=== PATIENT | female | born 1940 | race Caucasian/White ===

== ENCOUNTER 2017-08-29 14:57 | Emergency (ER) | payer SELFPAY, OTHER ==
[2017-08-29 15:50] LABS: ADD MAN DIFF? NO
[2017-08-29 15:52] LABS: BASOPHILS % 0.4 % (0.0-2.0); EOSINOPHILS % 0.3 % (0.0-7.0); HEMATOCRIT 34.5 % (37.0-47.0); HEMOGLOBIN 11.3 g/dl (12.0-16.0); LYMPHOCYTES # 1.6 10^3/ul (0.8-2.9); LYMPHOCYTES % 15.1 % (15.0-51.0); MEAN CORPUSCULAR HEMOGLOBIN 26.8 pg (29.0-33.0); MEAN CORPUSCULAR HGB CONC 32.8 g/dl (32.0-37.0); MEAN CORPUSCULAR VOLUME 81.9 fl (82.0-101.0); MEAN PLATELET VOLUME 11.3 fl (7.4-10.4); MONOCYTE # 0.7 10^3/ul (0.3-0.9); MONOCYTES % 6.8 % (0.0-11.0); NEUTROPHIL # 8.4 10^3/ul (1.6-7.5); PLATELET COUNT 193 10^3/UL (140-415); RED BLOOD COUNT 4.21 10^6/ul (4.20-5.40); RED CELL DISTRIBUTION WIDTH 14.8 % (11.5-14.5)
[2017-08-29 15:52] LABS: WHITE BLOOD COUNT 10.9 10^3/ul (4.8-10.8)
[2017-08-29 16:08] LABS: INR 1.09; PARTIAL THROMBOPLASTIN TIME 32.7 Sec (25.0-35.0); PROTIME 14.3 Sec (11.9-14.9); PT RATIO 1.1
[2017-08-29 16:11] LABS: LACTIC ACID 1.4 mmol/L (0.5-2.0)
[2017-08-29 16:11] LABS: ALANINE AMINOTRANSFERASE 27 IU/L (13-69); ALBUMIN 3.8 g/dl (3.3-4.9); ALKALINE PHOSPHATASE 133 IU/L (42-121); ANION GAP 18 (8-16); ASPARTATE AMINO TRANSFERASE 20 IU/L (15-46); BILIRUBIN,INDIRECT 0.2 mg/dl (0-1.1); BILIRUBIN,TOTAL 0.2 mg/dl (0.2-1.3); BLOOD UREA NITROGEN 6 mg/dl (7-20); CALCIUM 9.1 mg/dl (8.4-10.2); CARBON DIOXIDE 21 mmol/L (21-31); CHLORIDE 101 mmol/L (97-110); CHOL/HDL RATIO 3.4 RATIO; CHOLESTEROL 140 mg/dl (100-200); CREATINE KINASE 31 IU/L (23-200); CREATININE 0.59 mg/dl (0.44-1.00); GLUCOSE 107 mg/dl (70-220); HDL CHOLESTEROL 41 mg/dl (33-92); LDL CHOLESTEROL,CALCULATED 81 mg/dl; POTASSIUM 4.2 mmol/L (3.5-5.1); SODIUM 136 mmol/L (135-144); TOTAL PROTEIN 7.6 g/dl (6.1-8.1); TRIGLYCERIDES 91 mg/dl (0-149)
[2017-08-29 16:17] LABS: HEMOGLOBIN A1C 5.7 % (0-5.9)
[2017-08-29 16:22] LABS: CK INDEX 2.2; CK-MB 0.69 ng/ml (0.0-2.4)
[2017-08-29 16:24] LABS: TROPONIN-I < 0.012 ng/ml (0.00-0.12)
[2017-08-29] MEDS ORDERED: ASPIRIN 325 MG TAB PO (16:30)
[2017-08-29] MEDS: SOD CHLORIDE 0.9% 100 ML (16:57)
[2017-08-29] MEDS: IOHEXOL 100 ML (16:57)
[2017-08-29] MEDS: SOD CHLORIDE 0.9% 1,000 ML IV (17:05)
[2017-08-29] MEDS: ASPIRIN 600 MG SUPP PR (17:05)
[2017-08-29 17:06] LABS: ADD UMIC NO; UR ASCORBIC ACID NEGATIVE (NEGATIVE); UR BILIRUBIN (Dip) NEGATIVE (NEGATIVE); UR BLOOD (Dip) NEGATIVE (NEGATIVE); UR CLARITY CLEAR (CLEAR); UR COLOR YELLOW (YELLOW); UR GLUCOSE (Dip) NEGATIVE (NEGATIVE); UR KETONES (Dip) NEGATIVE (NEGATIVE); UR LEUKOCYTE ESTERASE (Dip) NEGATIVE Leu/ul (NEGATIVE); UR NITRITE (Dip) NEGATIVE (NEGATIVE); UR TOTAL PROTEIN (Dip) NEGATIVE (NEGATIVE); UR UROBILINOGEN (Dip) NEGATIVE (NEGATIVE)
== END 2017-08-29 18:09 | disposition short-term general hospital (02) ==
LOC: E/R 18:09
DX: I63.512 Cerebral infarction due to unspecified occlusion or stenosis of left middle cerebral artery (principal)
CPT/HCPCS: 36415; 70450; 70496; 70498; 71045; 80053; 80061; 81003; 82550; 82553; 82962; 83036; 83605; 84484; 85025; 85610; 85730; 86850; 86900; 86901; 87040; 87086; 93005; 99291-25

== ENCOUNTER 2017-10-24 00:40 | Inpatient (IN) | payer MEDICAID ==
[2017-10-24] MEDS: SODIUM CHLORIDE 0.9% 1L BAG IV* (01:58)
[2017-10-24] MEDS: ACETAMINOPHEN 650 MG SUPP PR (01:59)
[2017-10-24 02:31] LABS: ADD MAN DIFF? NO
[2017-10-24 02:36] LABS: WHITE BLOOD COUNT 10.9 10^3/ul (4.8-10.8)
[2017-10-24 02:36] LABS: BASOPHIL # 0.1 10^3/ul (0.0-0.1); BASOPHILS % 0.6 % (0.0-2.0); EOSINOPHILS % 0.1 % (0.0-7.0); HEMATOCRIT 38.5 % (37.0-47.0); HEMOGLOBIN 12.4 g/dl (12.0-16.0); LYMPHOCYTES # 1.4 10^3/ul (0.8-2.9); LYMPHOCYTES % 12.5 % (15.0-51.0); MEAN CORPUSCULAR HEMOGLOBIN 27.4 pg (29.0-33.0); MEAN CORPUSCULAR HGB CONC 32.2 g/dl (32.0-37.0); MEAN CORPUSCULAR VOLUME 85.2 fl (82.0-101.0); MEAN PLATELET VOLUME 11.4 fl (7.4-10.4); MONOCYTE # 0.7 10^3/ul (0.3-0.9); MONOCYTES % 6.6 % (0.0-11.0); NEUTROPHIL # 8.7 10^3/ul (1.6-7.5); NEUTROPHILS % 79.7 % (39.0-77.0); PLATELET COUNT 173 10^3/UL (140-415); RED BLOOD COUNT 4.52 10^6/ul (4.20-5.40); RED CELL DISTRIBUTION WIDTH 15.5 % (11.5-14.5)
[2017-10-24 02:53] LABS: LACTIC ACID 1.5 mmol/L (0.5-2.0)
[2017-10-24 02:54] LABS: ALANINE AMINOTRANSFERASE 20 IU/L (13-69); ALBUMIN 3.9 g/dl (3.3-4.9); ALBUMIN/GLOBULIN RATIO 0.95; ALKALINE PHOSPHATASE 143 IU/L (42-121); ANION GAP 16 (8-16); ASPARTATE AMINO TRANSFERASE 25 IU/L (15-46); BLOOD UREA NITROGEN 11 mg/dl (7-20); CARBON DIOXIDE 24 mmol/L (21-31); CHLORIDE 100 mmol/L (97-110); CREATININE 0.65 mg/dl (0.44-1.00); GLUCOSE 109 mg/dl (70-220); LIPASE 60 U/L (23-300); POTASSIUM 3.9 mmol/L (3.5-5.1); SODIUM 136 mmol/L (135-144)
[2017-10-24 03:11] LABS: INR 1.06; PROTIME 13.9 Sec (11.9-14.9); PT RATIO 1.1
[2017-10-24 03:12] LABS: PARTIAL THROMBOPLASTIN TIME 29.2 Sec (25.0-35.0)
[2017-10-24 03:21] LABS: TROPONIN-I < 0.010 ng/ml (0.000-0.120)
[2017-10-24 03:26] LABS: ADD UMIC YES; UR ASCORBIC ACID NEGATIVE (NEGATIVE); UR BILIRUBIN (Dip) NEGATIVE (NEGATIVE); UR BLOOD (Dip) NEGATIVE (NEGATIVE); UR CLARITY CLOUDY (CLEAR); UR COLOR AMBER (YELLOW); UR GLUCOSE (Dip) NEGATIVE (NEGATIVE); UR KETONES (Dip) TRACE mg/dL (NEGATIVE); UR LEUKOCYTE ESTERASE (Dip) NEGATIVE Leu/ul (NEGATIVE); UR MUCUS MANY /HPF (NONE SEEN); UR NITRITE (Dip) NEGATIVE (NEGATIVE); UR RBC 6 /HPF (0-5); UR SPECIFIC GRAVITY (Dip) 1.024 (1.003-1.030); UR TOTAL PROTEIN (Dip) 1+ mg/dl (NEGATIVE); UR UROBILINOGEN (Dip) 2+ mg/dL (NEGATIVE); UR WBC 4 /HPF (0-5)
[2017-10-24] MEDS: CEFTRIAXONE 1 GM/50 ML (PMX) 50 ML IVPB (03:26)
[2017-10-24] MEDS: DEXTROSE 5%-0.45% NACL 1,000 ML IV ×2 (06:43→19:47)
[2017-10-24 06:51] LABS: ADD MAN DIFF? NO
[2017-10-24 07:08] LABS: BASOPHIL # 0.1 10^3/ul (0.0-0.1); BASOPHILS % 0.7 % (0.0-2.0); EOSINOPHILS % 0.4 % (0.0-7.0); HEMATOCRIT 33.9 % (37.0-47.0); HEMOGLOBIN 10.7 g/dl (12.0-16.0); LYMPHOCYTES # 1.5 10^3/ul (0.8-2.9); LYMPHOCYTES % 16.3 % (15.0-51.0); MEAN CORPUSCULAR HEMOGLOBIN 27.7 pg (29.0-33.0); MEAN CORPUSCULAR HGB CONC 31.6 g/dl (32.0-37.0); MEAN CORPUSCULAR VOLUME 87.8 fl (82.0-101.0); MEAN PLATELET VOLUME 11.1 fl (7.4-10.4); MONOCYTE # 0.7 10^3/ul (0.3-0.9); MONOCYTES % 7.1 % (0.0-11.0); NEUTROPHIL # 6.9 10^3/ul (1.6-7.5); NEUTROPHILS % 74.7 % (39.0-77.0); PLATELET COUNT 160 10^3/UL (140-415); RED BLOOD COUNT 3.86 10^6/ul (4.20-5.40); RED CELL DISTRIBUTION WIDTH 15.6 % (11.5-14.5)
[2017-10-24 07:08] LABS: WHITE BLOOD COUNT 9.2 10^3/ul (4.8-10.8)
[2017-10-24 07:24] LABS: ALANINE AMINOTRANSFERASE 21 IU/L (13-69); ALBUMIN 3.1 g/dl (3.3-4.9); ALBUMIN/GLOBULIN RATIO 0.91; ALKALINE PHOSPHATASE 116 IU/L (42-121); ANION GAP 7 (8-16); ASPARTATE AMINO TRANSFERASE 21 IU/L (15-46); BILIRUBIN,INDIRECT 0.6 mg/dl (0-1.1); BILIRUBIN,TOTAL 0.6 mg/dl (0.2-1.3); BLOOD UREA NITROGEN 9 mg/dl (7-20); CALCIUM 8.3 mg/dl (8.4-10.2); CARBON DIOXIDE 27 mmol/L (21-31); CHLORIDE 108 mmol/L (97-110); CREATININE 0.64 mg/dl (0.44-1.00); GLUCOSE 99 mg/dl (70-220); MAGNESIUM 2.1 mg/dl (1.7-2.5); PHOSPHORUS 4.4 mg/dl (2.5-4.9); POTASSIUM 3.8 mmol/L (3.5-5.1); SODIUM 138 mmol/L (135-144); TOTAL PROTEIN 6.5 g/dl (6.1-8.1)
[2017-10-24] MEDS ORDERED: morphine 2 MG INJ IV (08:30)
[2017-10-24] MEDS ORDERED: NACL 0.9% 3 ML SYG IV (08:30)
[2017-10-24] MEDS: PANTOPRAZOLE 40 MG INJ IV (12:26)
[2017-10-24] MEDS ORDERED: VANCOMYCIN IV PER PHARMACY XX (21:30)
[2017-10-24] MEDS: VANCOMYCIN 1.25 GM in SOD CHLORIDE 0.9% 250 ML IVPB (23:00)
[2017-10-25 05:36] LABS: ADD MAN DIFF? NO
[2017-10-25] MEDS: PANTOPRAZOLE 40 MG INJ IV (05:44)
[2017-10-25 05:45] LABS: BASOPHIL # 0.1 10^3/ul (0.0-0.1); BASOPHILS % 0.6 % (0.0-2.0); EOSINOPHILS # 0.1 10^3/ul (0.0-0.5); EOSINOPHILS % 1.4 % (0.0-7.0); HEMATOCRIT 34.9 % (37.0-47.0); HEMOGLOBIN 11.1 g/dl (12.0-16.0); LYMPHOCYTES # 1.6 10^3/ul (0.8-2.9); LYMPHOCYTES % 19.6 % (15.0-51.0); MEAN CORPUSCULAR HEMOGLOBIN 27.8 pg (29.0-33.0); MEAN CORPUSCULAR HGB CONC 31.8 g/dl (32.0-37.0); MEAN CORPUSCULAR VOLUME 87.5 fl (82.0-101.0); MEAN PLATELET VOLUME 11.4 fl (7.4-10.4); MONOCYTE # 0.7 10^3/ul (0.3-0.9); MONOCYTES % 8.8 % (0.0-11.0); NEUTROPHIL # 5.5 10^3/ul (1.6-7.5); NEUTROPHILS % 69.1 % (39.0-77.0); PLATELET COUNT 162 10^3/UL (140-415); RED BLOOD COUNT 3.99 10^6/ul (4.20-5.40); RED CELL DISTRIBUTION WIDTH 15.2 % (11.5-14.5)
[2017-10-25 06:06] LABS: HEMOGLOBIN A1C 5.3 % (0-5.9)
[2017-10-25 06:11] LABS: ANION GAP 5 (8-16); BLOOD UREA NITROGEN 8 mg/dl (7-20); CALCIUM 8.2 mg/dl (8.4-10.2); CARBON DIOXIDE 24 mmol/L (21-31); CHLORIDE 109 mmol/L (97-110); CREATININE 0.53 mg/dl (0.44-1.00); GLUCOSE 100 mg/dl (70-220); POTASSIUM 3.3 mmol/L (3.5-5.1); SODIUM 135 mmol/L (135-144)
[2017-10-25 06:12] LABS: ALANINE AMINOTRANSFERASE 17 IU/L (13-69); ALBUMIN 2.8 g/dl (3.3-4.9); ALKALINE PHOSPHATASE 114 IU/L (42-121); ASPARTATE AMINO TRANSFERASE 15 IU/L (15-46); BILIRUBIN,INDIRECT 0.4 mg/dl (0-1.1); BILIRUBIN,TOTAL 0.4 mg/dl (0.2-1.3); TOTAL PROTEIN 6.3 g/dl (6.1-8.1)
[2017-10-25] MEDS: DEXTROSE 5%-0.45% NACL 1,000 ML IV (09:39)
[2017-10-25] MEDS: DEXTROSE IV (16:50)
[2017-10-25] MEDS: POTASSIUM CHLORIDE IV (16:50)
[2017-10-25] MEDS: NACL IV (16:50)
[2017-10-25] MEDS: ALBUTEROL 0.083% (NEB) 2.5 MG/3 ML AMP HHN (17:26)
[2017-10-26] MEDS: DEXTROSE IV ×3 (02:48→23:04)
[2017-10-26] MEDS: NACL IV ×3 (02:48→23:04)
[2017-10-26] MEDS: POTASSIUM CHLORIDE IV ×3 (02:48→23:04)
[2017-10-26 05:36] LABS: ADD MAN DIFF? NO
[2017-10-26 05:39] LABS: WHITE BLOOD COUNT 7.4 10^3/ul (4.8-10.8)
[2017-10-26 05:39] LABS: BASOPHILS % 0.5 % (0.0-2.0); EOSINOPHILS # 0.1 10^3/ul (0.0-0.5); EOSINOPHILS % 1.2 % (0.0-7.0); HEMATOCRIT 34.1 % (37.0-47.0); HEMOGLOBIN 10.9 g/dl (12.0-16.0); LYMPHOCYTES # 1.8 10^3/ul (0.8-2.9); LYMPHOCYTES % 23.8 % (15.0-51.0); MEAN CORPUSCULAR HEMOGLOBIN 27.7 pg (29.0-33.0); MEAN CORPUSCULAR VOLUME 86.5 fl (82.0-101.0); MEAN PLATELET VOLUME 11.1 fl (7.4-10.4); MONOCYTE # 0.8 10^3/ul (0.3-0.9); MONOCYTES % 11.2 % (0.0-11.0); NEUTROPHIL # 4.6 10^3/ul (1.6-7.5); PLATELET COUNT 157 10^3/UL (140-415); RED BLOOD COUNT 3.94 10^6/ul (4.20-5.40); RED CELL DISTRIBUTION WIDTH 15.3 % (11.5-14.5)
[2017-10-26] MEDS: PANTOPRAZOLE 40 MG INJ IV (05:41)
[2017-10-26 06:05] LABS: ANION GAP 9 (8-16); BLOOD UREA NITROGEN 6 mg/dl (7-20); CALCIUM 8.4 mg/dl (8.4-10.2); CARBON DIOXIDE 24 mmol/L (21-31); CHLORIDE 108 mmol/L (97-110); CREATININE 0.58 mg/dl (0.44-1.00); GLUCOSE 99 mg/dl (70-220); MAGNESIUM 1.9 mg/dl (1.7-2.5); PHOSPHORUS 3.1 mg/dl (2.5-4.9); POTASSIUM 3.7 mmol/L (3.5-5.1); SODIUM 137 mmol/L (135-144)
[2017-10-26] MEDS: BARIUM SULFATE 135 ML (E-Z HD) PO (10:24)
[2017-10-27] MEDS: PANTOPRAZOLE 40 MG INJ IV (05:26)
[2017-10-27 05:39] LABS: ADD MAN DIFF? NO
[2017-10-27 05:50] LABS: BASOPHIL # 0.1 10^3/ul (0.0-0.1); EOSINOPHILS # 0.1 10^3/ul (0.0-0.5); EOSINOPHILS % 2.3 % (0.0-7.0); HEMATOCRIT 33.4 % (37.0-47.0); LYMPHOCYTES # 1.8 10^3/ul (0.8-2.9); LYMPHOCYTES % 28.8 % (15.0-51.0); MEAN CORPUSCULAR HEMOGLOBIN 28.2 pg (29.0-33.0); MEAN CORPUSCULAR HGB CONC 32.9 g/dl (32.0-37.0); MEAN CORPUSCULAR VOLUME 85.6 fl (82.0-101.0); MEAN PLATELET VOLUME 11.9 fl (7.4-10.4); MONOCYTE # 0.6 10^3/ul (0.3-0.9); MONOCYTES % 9.4 % (0.0-11.0); NEUTROPHIL # 3.6 10^3/ul (1.6-7.5); NEUTROPHILS % 58.2 % (39.0-77.0); PLATELET COUNT 171 10^3/UL (140-415); RED CELL DISTRIBUTION WIDTH 15.4 % (11.5-14.5)
[2017-10-27 05:50] LABS: WHITE BLOOD COUNT 6.2 10^3/ul (4.8-10.8)
[2017-10-27 06:12] LABS: ALBUMIN 2.8 g/dl (3.3-4.9); ANION GAP 8 (8-16); BLOOD UREA NITROGEN 2 mg/dl (7-20); CALCIUM 8.5 mg/dl (8.4-10.2); CARBON DIOXIDE 21 mmol/L (21-31); CHLORIDE 111 mmol/L (97-110); CREATININE 0.47 mg/dl (0.44-1.00); GLUCOSE 97 mg/dl (70-220); MAGNESIUM 1.8 mg/dl (1.7-2.5); PHOSPHORUS 2.9 mg/dl (2.5-4.9); POTASSIUM 4.1 mmol/L (3.5-5.1); SODIUM 136 mmol/L (135-144)
[2017-10-27] MEDS: NACL IV (16:00)
[2017-10-27] MEDS: DEXTROSE IV (16:00)
[2017-10-27] MEDS: POTASSIUM CHLORIDE IV (16:00)
[2017-10-28] MEDS: DEXTROSE IV ×2 (05:05→19:40)
[2017-10-28] MEDS: NACL IV ×2 (05:05→19:40)
[2017-10-28] MEDS: POTASSIUM CHLORIDE IV ×2 (05:05→19:40)
[2017-10-28] MEDS: PANTOPRAZOLE 40 MG INJ IV (05:05)
[2017-10-28 07:06] LABS: ADD MAN DIFF? NO
[2017-10-28 07:11] LABS: WHITE BLOOD COUNT 6.8 10^3/ul (4.8-10.8)
[2017-10-28 07:11] LABS: BASOPHILS % 0.6 % (0.0-2.0); EOSINOPHILS # 0.1 10^3/ul (0.0-0.5); EOSINOPHILS % 1.8 % (0.0-7.0); HEMATOCRIT 40.5 % (37.0-47.0); HEMOGLOBIN 12.7 g/dl (12.0-16.0); LYMPHOCYTES # 1.6 10^3/ul (0.8-2.9); LYMPHOCYTES % 23.3 % (15.0-51.0); MEAN CORPUSCULAR HEMOGLOBIN 27.4 pg (29.0-33.0); MEAN CORPUSCULAR HGB CONC 31.4 g/dl (32.0-37.0); MEAN CORPUSCULAR VOLUME 87.3 fl (82.0-101.0); MEAN PLATELET VOLUME 11.4 fl (7.4-10.4); MONOCYTE # 0.6 10^3/ul (0.3-0.9); MONOCYTES % 8.7 % (0.0-11.0); NEUTROPHIL # 4.4 10^3/ul (1.6-7.5); PLATELET COUNT 176 10^3/UL (140-415); RED BLOOD COUNT 4.64 10^6/ul (4.20-5.40); RED CELL DISTRIBUTION WIDTH 15.5 % (11.5-14.5)
[2017-10-28 07:53] LABS: ALBUMIN 3.4 g/dl (3.3-4.9); ANION GAP 13 (8-16); CARBON DIOXIDE 23 mmol/L (21-31); CHLORIDE 106 mmol/L (97-110); CREATININE 0.51 mg/dl (0.44-1.00); GLUCOSE 103 mg/dl (70-220); MAGNESIUM 1.8 mg/dl (1.7-2.5); PHOSPHORUS 3.3 mg/dl (2.5-4.9); POTASSIUM 4.6 mmol/L (3.5-5.1); SODIUM 137 mmol/L (135-144)
[2017-10-28 08:09] LABS: BLOOD UREA NITROGEN < 2 mg/dl (7-20)
[2017-10-29] MEDS: PANTOPRAZOLE 40 MG INJ IV (05:37)
[2017-10-29] MEDS: POTASSIUM CHLORIDE IV ×2 (10:15→16:36)
[2017-10-29] MEDS: DEXTROSE IV ×2 (10:15→16:36)
[2017-10-29] MEDS: NACL IV ×2 (10:15→16:36)
[2017-10-30] MEDS: PANTOPRAZOLE 40 MG INJ IV (05:39)
[2017-10-30] MEDS: NACL IV ×2 (05:43→13:00)
[2017-10-30] MEDS: POTASSIUM CHLORIDE IV ×2 (05:43→13:00)
[2017-10-30] MEDS: DEXTROSE IV ×2 (05:43→13:00)
[2017-10-30] MEDS: ASPIRIN 81 MG TAB GTB (11:54)
[2017-10-30] MEDS: AMLODIPINE 5 MG TAB GTB (11:54)
[2017-10-31] MEDS: PANTOPRAZOLE 40 MG INJ IV (05:46)
[2017-10-31 05:51] LABS: WHITE BLOOD COUNT 8.8 10^3/ul (4.8-10.8)
[2017-10-31 05:51] LABS: HEMATOCRIT 33.2 % (37.0-47.0); HEMOGLOBIN 10.7 g/dl (12.0-16.0); MEAN CORPUSCULAR HEMOGLOBIN 27.9 pg (29.0-33.0); MEAN CORPUSCULAR HGB CONC 32.2 g/dl (32.0-37.0); MEAN CORPUSCULAR VOLUME 86.5 fl (82.0-101.0); MEAN PLATELET VOLUME 10.9 fl (7.4-10.4); RED BLOOD COUNT 3.84 10^6/ul (4.20-5.40); RED CELL DISTRIBUTION WIDTH 15.4 % (11.5-14.5)
[2017-10-31 06:03] LABS: PLATELET COUNT 129 10^3/UL (140-415); POSITIVE DIFF @See below
[2017-10-31 06:04] LABS: ADD MAN DIFF? YES
[2017-10-31 06:27] LABS: ALBUMIN 2.9 g/dl (3.3-4.9); ANION GAP 13 (8-16); BLOOD UREA NITROGEN 11 mg/dl (7-20); CALCIUM 8.2 mg/dl (8.4-10.2); CARBON DIOXIDE 22 mmol/L (21-31); CHLORIDE 106 mmol/L (97-110); CREATININE 0.48 mg/dl (0.44-1.00); GLUCOSE 107 mg/dl (70-220); MAGNESIUM 1.7 mg/dl (1.7-2.5); PHOSPHORUS 3.5 mg/dl (2.5-4.9); POTASSIUM 3.8 mmol/L (3.5-5.1); SODIUM 137 mmol/L (135-144)
[2017-10-31 08:01] LABS: ANISOCYTOSIS 1+ (0-0); BURR CELLS 1+ (0-0); LYMPHOCYTES #M 1.2 10^3/ul (0.8-2.9); LYMPHOCYTES % (M) 14 % (15-51); MONOCYTE #M 0.7 10^3/ul (0.3-0.9); MONOCYTES % (M) 9 % (0-11); OVALOCYTES 1+ (0-0); PLATELET ESTIMATE INCREASED; PLATELET MORPHOLOGY COMMENT @See below; POIKILOCYTOSIS 1+ (0-0); SEGMENTED NEUTROPHILS (M) % 77 % (39-77); SMUDGE%M 1 % (0-0)
[2017-10-31] MEDS: AMLODIPINE 5 MG TAB GTB (08:59)
[2017-10-31] MEDS: ASPIRIN 81 MG TAB GTB (09:02)
[2017-11-01] MEDS: PANTOPRAZOLE 40 MG INJ IV (05:05)
[2017-11-01 06:10] LABS: ADD MAN DIFF? NO
[2017-11-01 06:20] LABS: WHITE BLOOD COUNT 6.2 10^3/ul (4.8-10.8)
[2017-11-01 06:20] LABS: BASOPHILS % 0.6 % (0.0-2.0); EOSINOPHILS # 0.2 10^3/ul (0.0-0.5); EOSINOPHILS % 2.7 % (0.0-7.0); HEMOGLOBIN 10.5 g/dl (12.0-16.0); LYMPHOCYTES # 1.8 10^3/ul (0.8-2.9); LYMPHOCYTES % 29.4 % (15.0-51.0); MEAN CORPUSCULAR HEMOGLOBIN 28.2 pg (29.0-33.0); MEAN CORPUSCULAR HGB CONC 32.8 g/dl (32.0-37.0); MEAN PLATELET VOLUME 12.1 fl (7.4-10.4); MONOCYTE # 0.7 10^3/ul (0.3-0.9); MONOCYTES % 10.6 % (0.0-11.0); NEUTROPHIL # 3.5 10^3/ul (1.6-7.5); NEUTROPHILS % 56.4 % (39.0-77.0); PLATELET COUNT 201 10^3/UL (140-415); RED BLOOD COUNT 3.72 10^6/ul (4.20-5.40); RED CELL DISTRIBUTION WIDTH 15.4 % (11.5-14.5)
[2017-11-01 06:40] LABS: ALBUMIN 2.9 g/dl (3.3-4.9); ANION GAP 10 (8-16); BLOOD UREA NITROGEN 12 mg/dl (7-20); CALCIUM 8.4 mg/dl (8.4-10.2); CARBON DIOXIDE 27 mmol/L (21-31); CHLORIDE 106 mmol/L (97-110); CREATININE 0.53 mg/dl (0.44-1.00); GLUCOSE 110 mg/dl (70-220); MAGNESIUM 1.8 mg/dl (1.7-2.5); PHOSPHORUS 3.4 mg/dl (2.5-4.9); POTASSIUM 3.7 mmol/L (3.5-5.1); SODIUM 139 mmol/L (135-144)
[2017-11-01] MEDS: AMLODIPINE 5 MG TAB GTB (08:57)
[2017-11-01] MEDS: ASPIRIN 81 MG TAB GTB (08:57)
[2017-11-02 05:51] LABS: ADD MAN DIFF? NO
[2017-11-02 06:01] LABS: WHITE BLOOD COUNT 7.1 10^3/ul (4.8-10.8)
[2017-11-02 06:01] LABS: BASOPHILS % 0.4 % (0.0-2.0); EOSINOPHILS # 0.3 10^3/ul (0.0-0.5); EOSINOPHILS % 3.7 % (0.0-7.0); HEMATOCRIT 32.8 % (37.0-47.0); HEMOGLOBIN 10.5 g/dl (12.0-16.0); LYMPHOCYTES # 1.7 10^3/ul (0.8-2.9); LYMPHOCYTES % 23.6 % (15.0-51.0); MEAN CORPUSCULAR VOLUME 87.5 fl (82.0-101.0); MEAN PLATELET VOLUME 11.9 fl (7.4-10.4); MONOCYTE # 0.7 10^3/ul (0.3-0.9); MONOCYTES % 9.6 % (0.0-11.0); NEUTROPHIL # 4.5 10^3/ul (1.6-7.5); NEUTROPHILS % 62.4 % (39.0-77.0); PLATELET COUNT 255 10^3/UL (140-415); RED BLOOD COUNT 3.75 10^6/ul (4.20-5.40); RED CELL DISTRIBUTION WIDTH 15.2 % (11.5-14.5)
[2017-11-02] MEDS: PANTOPRAZOLE 40 MG INJ IV (06:21)
[2017-11-02 06:28] LABS: ANION GAP 9 (8-16)
[2017-11-02 06:42] LABS: BLOOD UREA NITROGEN 16 mg/dl (7-20); CALCIUM 8.4 mg/dl (8.4-10.2); CARBON DIOXIDE 26 mmol/L (21-31); CHLORIDE 105 mmol/L (97-110); CREATININE 0.48 mg/dl (0.44-1.00); GLUCOSE 106 mg/dl (70-220); MAGNESIUM 1.8 mg/dl (1.7-2.5); PHOSPHORUS 3.2 mg/dl (2.5-4.9); POTASSIUM 4.1 mmol/L (3.5-5.1); SODIUM 136 mmol/L (135-144)
[2017-11-02] MEDS: AMLODIPINE 5 MG TAB GTB (09:09)
[2017-11-02] MEDS: ASPIRIN 81 MG TAB GTB (09:09)
[2017-11-03] MEDS: PANTOPRAZOLE 40 MG INJ IV (06:10)
[2017-11-03] MEDS: AMLODIPINE 5 MG TAB GTB (08:28)
[2017-11-03] MEDS: ASPIRIN 81 MG TAB GTB (08:28)
[2017-11-04] MEDS: PANTOPRAZOLE 40 MG INJ IV (06:25)
[2017-11-04] MEDS: AMLODIPINE 5 MG TAB GTB (09:11)
[2017-11-04] MEDS: ASPIRIN 81 MG TAB GTB (09:11)
[2017-11-05] MEDS ORDERED: LANSOPRAZOLE 15 MG CAP NGT (06:00)
[2017-11-05] MEDS: LANSOPRAZOLE ORAL SUSP 3 MG/ML POSYG NGT (06:38)
[2017-11-05] MEDS: ASPIRIN 81 MG TAB GTB (08:40)
[2017-11-05] MEDS: AMLODIPINE 5 MG TAB GTB (08:40)
[2017-11-06] MEDS: LANSOPRAZOLE ORAL SUSP 3 MG/ML POSYG NGT (05:31)
[2017-11-06] MEDS: AMLODIPINE 5 MG TAB GTB (08:27)
[2017-11-06] MEDS: ASPIRIN 81 MG TAB GTB (08:27)
[2017-11-07] MEDS: LANSOPRAZOLE ORAL SUSP 3 MG/ML POSYG NGT (05:30)
[2017-11-07] MEDS: AMLODIPINE 5 MG TAB GTB (08:15)
[2017-11-07] MEDS: ASPIRIN 81 MG TAB GTB (08:15)
[2017-11-08] MEDS: LANSOPRAZOLE ORAL SUSP 3 MG/ML POSYG NGT (06:11)
[2017-11-08] MEDS: AMLODIPINE 5 MG TAB GTB (08:24)
[2017-11-08] MEDS: ASPIRIN 81 MG TAB GTB (08:24)
[2017-11-09] MEDS: LANSOPRAZOLE ORAL SUSP 3 MG/ML POSYG NGT (05:24)
[2017-11-09] MEDS: ASPIRIN 81 MG TAB GTB (09:14)
[2017-11-09] MEDS: AMLODIPINE 5 MG TAB GTB (09:14)
[2017-11-10] MEDS: DOCUSATE SODIUM 10 MG/ML (10ML CUP) GTB (05:54)
[2017-11-10] MEDS: LANSOPRAZOLE ORAL SUSP 3 MG/ML POSYG NGT (05:55)
[2017-11-10] MEDS: AMLODIPINE 5 MG TAB GTB (08:28)
[2017-11-10] MEDS: ASPIRIN 81 MG TAB GTB (08:28)
[2017-11-10] MEDS: ENOXAPARIN 40 MG/0.4 ML SYG SC (13:32)
[2017-11-10] MEDS: ATORVASTATIN 20 MG TAB GTB (20:27)
[2017-11-11] MEDS: LANSOPRAZOLE ORAL SUSP 3 MG/ML POSYG NGT (05:56)
[2017-11-11] MEDS: ENOXAPARIN 40 MG/0.4 ML SYG SC (09:03)
[2017-11-11] MEDS: AMLODIPINE 5 MG TAB GTB (09:03)
[2017-11-11] MEDS: ASPIRIN 81 MG TAB GTB (09:08)
[2017-11-11] MEDS: ATORVASTATIN 20 MG TAB GTB (20:49)
[2017-11-11] MEDS: DOCUSATE SODIUM 10 MG/ML (10ML CUP) GTB (20:50)
[2017-11-12] MEDS: LANSOPRAZOLE ORAL SUSP 3 MG/ML POSYG NGT (05:43)
[2017-11-12] MEDS: ASPIRIN 81 MG TAB GTB (09:05)
[2017-11-12] MEDS: AMLODIPINE 5 MG TAB GTB (09:06)
[2017-11-12] MEDS: ENOXAPARIN 40 MG/0.4 ML SYG SC (09:06)
[2017-11-12] MEDS: ATORVASTATIN 20 MG TAB GTB (20:59)
[2017-11-13] MEDS: LANSOPRAZOLE ORAL SUSP 3 MG/ML POSYG NGT (05:51)
[2017-11-13] MEDS: morphine LIQ (10 MG/5 ML) CUP PO (06:02)
[2017-11-13 06:11] LABS: ADD MAN DIFF? NO
[2017-11-13 06:13] LABS: BASOPHIL # 0.1 10^3/ul (0.0-0.1); BASOPHILS % 1.1 % (0.0-2.0); EOSINOPHILS # 0.4 10^3/ul (0.0-0.5); EOSINOPHILS % 4.8 % (0.0-7.0); HEMATOCRIT 33.4 % (37.0-47.0); HEMOGLOBIN 10.9 g/dl (12.0-16.0); LYMPHOCYTES # 1.8 10^3/ul (0.8-2.9); LYMPHOCYTES % 19.4 % (15.0-51.0); MEAN CORPUSCULAR HEMOGLOBIN 28.5 pg (29.0-33.0); MEAN CORPUSCULAR HGB CONC 32.6 g/dl (32.0-37.0); MEAN CORPUSCULAR VOLUME 87.2 fl (82.0-101.0); MEAN PLATELET VOLUME 12.1 fl (7.4-10.4); MONOCYTE # 0.6 10^3/ul (0.3-0.9); MONOCYTES % 6.2 % (0.0-11.0); NEUTROPHIL # 6.1 10^3/ul (1.6-7.5); NEUTROPHILS % 68.1 % (39.0-77.0); PLATELET COUNT 439 10^3/UL (140-415); RED BLOOD COUNT 3.83 10^6/ul (4.20-5.40); RED CELL DISTRIBUTION WIDTH 15.3 % (11.5-14.5)
[2017-11-13 06:58] LABS: ANION GAP 17 (8-16); BLOOD UREA NITROGEN 21 mg/dl (7-20); CALCIUM 9.3 mg/dl (8.4-10.2); CARBON DIOXIDE 27 mmol/L (21-31); CHLORIDE 101 mmol/L (97-110); CREATININE 0.51 mg/dl (0.44-1.00); GLUCOSE 102 mg/dl (70-220); SODIUM 141 mmol/L (135-144)
[2017-11-13] MEDS: ASPIRIN 81 MG TAB GTB (08:50)
[2017-11-13] MEDS: AMLODIPINE 5 MG TAB GTB (08:51)
[2017-11-13] MEDS: ENOXAPARIN 40 MG/0.4 ML SYG SC (08:53)
[2017-11-13] MEDS: ATORVASTATIN 20 MG TAB GTB (21:25)
[2017-11-14] MEDS ORDERED: LANSOPRAZOLE ORAL SUSP 3 MG/ML POSYG GTB (05:12)
[2017-11-14] MEDS: LANSOPRAZOLE ORAL SUSP 3 MG/ML POSYG GTB (05:23)
[2017-11-14] MEDS: ENOXAPARIN 40 MG/0.4 ML SYG SC (08:54)
[2017-11-14] MEDS: ASPIRIN 81 MG TAB GTB (08:55)
[2017-11-14] MEDS: AMLODIPINE 5 MG TAB GTB (08:56)
[2017-11-14] MEDS ORDERED: MAGNESIUM HYDROXIDE 30ML CUP PO (21:00)
[2017-11-14] MEDS: ATORVASTATIN 20 MG TAB GTB (21:08)
[2017-11-14] MEDS: MAGNESIUM HYDROXIDE 30ML CUP GTB (21:08)
[2017-11-15] MEDS: LANSOPRAZOLE ORAL SUSP 3 MG/ML POSYG GTB (05:14)
[2017-11-15] MEDS: AMLODIPINE 5 MG TAB GTB (08:47)
[2017-11-15] MEDS: ASPIRIN 81 MG TAB GTB (08:47)
[2017-11-15] MEDS: MAGNESIUM HYDROXIDE 30ML CUP GTB (08:47)
[2017-11-15] MEDS: ENOXAPARIN 40 MG/0.4 ML SYG SC (08:50)
[2017-11-15] MEDS: ATORVASTATIN 20 MG TAB GTB (23:04)
[2017-11-16] MEDS: ACETAMINOPHEN 325 MG TAB PO (01:37)
[2017-11-16] MEDS: ONDANSETRON 4 MG INJ IV (01:37)
[2017-11-16] MEDS: SOD CHLORIDE 0.9% 250 ML IV (04:21)
[2017-11-16] MEDS: LANSOPRAZOLE ORAL SUSP 3 MG/ML POSYG GTB (06:27)
[2017-11-16] MEDS: MAGNESIUM HYDROXIDE 30ML CUP GTB ×2 (09:00→09:58)
[2017-11-16] MEDS: AMLODIPINE 5 MG TAB GTB (09:58)
[2017-11-16] MEDS: ENOXAPARIN 40 MG/0.4 ML SYG SC (09:58)
[2017-11-16] MEDS: ASPIRIN 81 MG TAB GTB (09:58)
[2017-11-16] MEDS ORDERED: BISACODYL 10 MG SUPP PR (18:00)
[2017-11-16] MEDS: BISACODYL (EC) 5 MG TAB PO (18:11)
[2017-11-16] MEDS: LACTOBACILLUS RHAMNOSUS CAP GTB (20:45)
[2017-11-16] MEDS: DOCUSATE SODIUM 10 MG/ML (10ML CUP) GTB (20:45)
[2017-11-16] MEDS: ATORVASTATIN 20 MG TAB GTB (20:45)
[2017-11-17] MEDS: LANSOPRAZOLE ORAL SUSP 3 MG/ML POSYG GTB (05:15)
[2017-11-17] MEDS: BISACODYL (EC) 5 MG TAB PO (08:43)
[2017-11-17] MEDS: ASPIRIN 81 MG TAB GTB (08:43)
[2017-11-17] MEDS: LACTOBACILLUS RHAMNOSUS CAP GTB ×2 (08:43→20:09)
[2017-11-17] MEDS: AMLODIPINE 2.5 MG TAB GTB (08:44)
[2017-11-17] MEDS: ENOXAPARIN 40 MG/0.4 ML SYG SC (08:45)
[2017-11-17] MEDS: ATORVASTATIN 20 MG TAB GTB (20:09)
[2017-11-17] MEDS: DOCUSATE SODIUM 10 MG/ML (10ML CUP) GTB (20:09)
[2017-11-18] MEDS: LANSOPRAZOLE ORAL SUSP 3 MG/ML POSYG GTB (05:08)
[2017-11-18] MEDS: ASPIRIN 81 MG TAB GTB (09:35)
[2017-11-18] MEDS: MAGNESIUM HYDROXIDE 30ML CUP GTB (09:35)
[2017-11-18] MEDS: AMLODIPINE 2.5 MG TAB GTB (09:35)
[2017-11-18] MEDS: BISACODYL (EC) 5 MG TAB PO (09:35)
[2017-11-18] MEDS: LACTOBACILLUS RHAMNOSUS CAP GTB ×2 (09:35→21:09)
[2017-11-18] MEDS: ENOXAPARIN 40 MG/0.4 ML SYG SC (09:36)
[2017-11-18] MEDS: morphine LIQ (10 MG/5 ML) CUP PO (15:42)
[2017-11-18] MEDS: METOCLOPRAMIDE 10 MG INJ IV ×2 (18:24→21:09)
[2017-11-18] MEDS: CEFTRIAXONE 2 GM/50 ML (PMX) 50 ML IVPB (18:25)
[2017-11-18] MEDS: DOCUSATE SODIUM 10 MG/ML (10ML CUP) GTB (21:00)
[2017-11-18] MEDS: ACETAMINOPHEN 325 MG TAB PO (21:09)
[2017-11-18] MEDS: ATORVASTATIN 20 MG TAB GTB (21:09)
[2017-11-18] MEDS: DIPHENHYDRAMINE 25 MG CAP PO (22:48)
[2017-11-18] MEDS: METHYLPREDNISOLONE 125 MG INJ IV (22:49)
[2017-11-19] MEDS: ALBUTEROL/IPRATROPIUM (NEB) 3 ML AMP HHN (02:58)
[2017-11-19] MEDS: METOCLOPRAMIDE 10 MG INJ IV ×3 (05:29→21:46)
[2017-11-19] MEDS: LANSOPRAZOLE ORAL SUSP 3 MG/ML POSYG GTB (05:29)
[2017-11-19 06:03] LABS: ABNORMAL IP MESSAGE 1; HEMATOCRIT 37.9 % (37.0-47.0); HEMOGLOBIN 12.1 g/dl (12.0-16.0); MEAN CORPUSCULAR HEMOGLOBIN 27.6 pg (29.0-33.0); MEAN CORPUSCULAR HGB CONC 31.9 g/dl (32.0-37.0); MEAN CORPUSCULAR VOLUME 86.5 fl (82.0-101.0); MEAN PLATELET VOLUME 13.1 fl (7.4-10.4); PLATELET COUNT 402 10^3/UL (140-415); RED BLOOD COUNT 4.38 10^6/ul (4.20-5.40); RED CELL DISTRIBUTION WIDTH 15.3 % (11.5-14.5)
[2017-11-19 06:03] LABS: WHITE BLOOD COUNT 18.4 10^3/ul (4.8-10.8)
[2017-11-19 06:08] LABS: ADD MAN DIFF? YES; POSITIVE DIFF @See below
[2017-11-19 06:44] LABS: LIPASE 19 U/L (23-300)
[2017-11-19 06:53] LABS: ANISOCYTOSIS 1+ (0-0); BAND NEUTROPHILS #M 8.6 10^3/ul (0.0-0.6); BAND NEUTROPHILS % (M) 47 % (0-4); BURR CELLS 3+ (0-0); EOSINOPHILS % (M) 1 % (0-7); GIANT THROMBO% (M) 5 % (0-0); LYMPHOCYTES #M 1.4 10^3/ul (0.8-2.9); LYMPHOCYTES % (M) 8 % (15-51); MICROCYTOSIS 1+ (0-0); MONOCYTE #M 0.3 10^3/ul (0.3-0.9); MONOCYTES % (M) 2 % (0-11); MYELOCYTES #M 0.1 10^3/ul (0.0-0.0); MYELOCYTES % (M) 1 % (0-0); PLATELET ESTIMATE NORMAL; POIKILOCYTOSIS 3+ (0-0); REACTIVE LYMPHOCYTES #M 0.3 10^3/ul (0.0-0.0); REACTIVE LYMPHOCYTES% (M) 2 % (0-0); SEG NEUT #M 8.8 10^3/ul (1.6-7.5); SEGMENTED NEUTROPHILS (M) % 39 % (39-77); SMUDGE%M 38 % (0-0)
[2017-11-19 07:02] LABS: TROPONIN-I 0.014 ng/ml (0.000-0.120)
[2017-11-19 07:16] LABS: ALANINE AMINOTRANSFERASE 22 IU/L (13-69); ALBUMIN/GLOBULIN RATIO 1.11; ALKALINE PHOSPHATASE 119 IU/L (42-121); ANION GAP 21 (8-16); ASPARTATE AMINO TRANSFERASE 26 IU/L (15-46); BILIRUBIN,INDIRECT 0.2 mg/dl (0-1.1); BILIRUBIN,TOTAL 0.2 mg/dl (0.2-1.3); BLOOD UREA NITROGEN 46 mg/dl (7-20); CALCIUM 9.3 mg/dl (8.4-10.2); CARBON DIOXIDE 20 mmol/L (21-31); CHLORIDE 107 mmol/L (97-110); CREATININE 0.95 mg/dl (0.44-1.00); GLUCOSE 171 mg/dl (70-220); MAGNESIUM 2.2 mg/dl (1.7-2.5); PHOSPHORUS 3.6 mg/dl (2.5-4.9); POTASSIUM 3.1 mmol/L (3.5-5.1); SODIUM 145 mmol/L (135-144); TOTAL PROTEIN 7.6 g/dl (6.1-8.1)
[2017-11-19] MEDS: ASPIRIN 81 MG TAB GTB (08:38)
[2017-11-19] MEDS: LACTOBACILLUS RHAMNOSUS CAP GTB ×2 (08:38→21:45)
[2017-11-19] MEDS: AMLODIPINE 2.5 MG TAB GTB (08:38)
[2017-11-19] MEDS: ENOXAPARIN 40 MG/0.4 ML SYG SC (08:39)
[2017-11-19] MEDS ORDERED: VANCOMYCIN IV PER PHARMACY XX (15:30)
[2017-11-19] MEDS: MEROPENEM 500MG/50 ML (PMX) 50 ML IVPB (17:05)
[2017-11-19] MEDS: POTASSIUM CHLORIDE 100 ML IVPB ×2 (17:51→19:52)
[2017-11-19] MEDS: LORATADINE 10 MG TAB PO (17:56)
[2017-11-19] MEDS: DOCUSATE SODIUM 10 MG/ML (10ML CUP) GTB (21:00)
[2017-11-19] MEDS: ATORVASTATIN 20 MG TAB GTB (21:45)
[2017-11-19] MEDS: VANCOMYCIN 1.25 GM in SOD CHLORIDE 0.9% 250 ML IVPB (21:52)
[2017-11-20] MEDS: MEROPENEM 500MG/50 ML (PMX) 50 ML IVPB ×2 (03:50→08:59)
[2017-11-20] MEDS: LANSOPRAZOLE ORAL SUSP 3 MG/ML POSYG GTB (05:27)
[2017-11-20] MEDS ORDERED: LEVOFLOXACIN 750 MG TABLET GTB (06:00)
[2017-11-20 06:12] LABS: ADD MAN DIFF? NO
[2017-11-20 06:31] LABS: WHITE BLOOD COUNT 20.1 10^3/ul (4.8-10.8)
[2017-11-20 06:31] LABS: ABNORMAL IP MESSAGE 1; BASOPHIL # 0.1 10^3/ul (0.0-0.1); BASOPHILS % 0.3 % (0.0-2.0); EOSINOPHILS # 0.3 10^3/ul (0.0-0.5); EOSINOPHILS % 1.2 % (0.0-7.0); HEMATOCRIT 32.8 % (37.0-47.0); HEMOGLOBIN 10.4 g/dl (12.0-16.0); LYMPHOCYTES # 1.6 10^3/ul (0.8-2.9); MEAN CORPUSCULAR HEMOGLOBIN 27.7 pg (29.0-33.0); MEAN CORPUSCULAR HGB CONC 31.7 g/dl (32.0-37.0); MEAN CORPUSCULAR VOLUME 87.5 fl (82.0-101.0); MEAN PLATELET VOLUME 13.3 fl (7.4-10.4); MONOCYTE # 1.2 10^3/ul (0.3-0.9); MONOCYTES % 5.9 % (0.0-11.0); NEUTROPHIL # 16.8 10^3/ul (1.6-7.5); NEUTROPHILS % 83.6 % (39.0-77.0); PLATELET COUNT 331 10^3/UL (140-415); RED BLOOD COUNT 3.75 10^6/ul (4.20-5.40); RED CELL DISTRIBUTION WIDTH 15.4 % (11.5-14.5)
[2017-11-20 06:52] LABS: LIPASE 46 U/L (23-300)
[2017-11-20 06:57] LABS: POSITIVE DIFF @See below
[2017-11-20 07:05] LABS: ALANINE AMINOTRANSFERASE 30 IU/L (13-69); ALBUMIN 3.4 g/dl (3.3-4.9); ALBUMIN/GLOBULIN RATIO 0.91; ALKALINE PHOSPHATASE 104 IU/L (42-121); ANION GAP 13 (8-16); ASPARTATE AMINO TRANSFERASE 19 IU/L (15-46); BILIRUBIN,INDIRECT 0.3 mg/dl (0-1.1); BILIRUBIN,TOTAL 0.3 mg/dl (0.2-1.3); BLOOD UREA NITROGEN 39 mg/dl (7-20); CALCIUM 9.1 mg/dl (8.4-10.2); CARBON DIOXIDE 25 mmol/L (21-31); CHLORIDE 112 mmol/L (97-110); CREATININE 0.66 mg/dl (0.44-1.00); GLUCOSE 103 mg/dl (70-220); MAGNESIUM 2.1 mg/dl (1.7-2.5); PHOSPHORUS 2.6 mg/dl (2.5-4.9); POTASSIUM 3.3 mmol/L (3.5-5.1); SODIUM 147 mmol/L (135-144); TOTAL PROTEIN 7.1 g/dl (6.1-8.1)
[2017-11-20] MEDS: LORATADINE 10 MG TAB PO (08:58)
[2017-11-20] MEDS: ENOXAPARIN 40 MG/0.4 ML SYG SC (08:58)
[2017-11-20] MEDS: ASPIRIN 81 MG TAB GTB (08:58)
[2017-11-20] MEDS: LACTOBACILLUS RHAMNOSUS CAP GTB ×2 (08:58→22:24)
[2017-11-20] MEDS: AMLODIPINE 2.5 MG TAB GTB (09:00)
[2017-11-20] MEDS: VANCOMYCIN 1.25 GM in SOD CHLORIDE 0.9% 250 ML IVPB (12:03)
[2017-11-20] MEDS ORDERED: ALBUTEROL 0.083% (NEB) 2.5 MG/3 ML AMP HHN (14:30)
[2017-11-20] MEDS: FUROSEMIDE 20 MG INJ IV (14:45)
[2017-11-20] MEDS ORDERED: VANCOMYCIN 750 MG in SOD CHLORIDE 0.9% 150 ML IVPB (18:00)
[2017-11-20] MEDS: ATORVASTATIN 20 MG TAB GTB (22:24)
[2017-11-20] MEDS: DOCUSATE SODIUM 10 MG/ML (10ML CUP) GTB (22:24)
[2017-11-20] MEDS: D5W + KCL 20 MEQ 1,000 ML IV (22:25)
[2017-11-20] MEDS: MEROPENEM 1 GM/50ML(PMX) 50 ML IVPB (22:26)
[2017-11-20] MEDS: ALBUTEROL/IPRATROPIUM (NEB) 3 ML AMP HHN (23:16)
[2017-11-21] MEDS: LANSOPRAZOLE ORAL SUSP 3 MG/ML POSYG GTB (05:22)
[2017-11-21 06:10] LABS: ADD MAN DIFF? NO
[2017-11-21 06:26] LABS: ABNORMAL IP MESSAGE 1; BASOPHIL # 0.1 10^3/ul (0.0-0.1); BASOPHILS % 0.3 % (0.0-2.0); EOSINOPHILS # 0.4 10^3/ul (0.0-0.5); EOSINOPHILS % 2.2 % (0.0-7.0); HEMATOCRIT 29.4 % (37.0-47.0); HEMOGLOBIN 9.3 g/dl (12.0-16.0); LYMPHOCYTES # 2.3 10^3/ul (0.8-2.9); LYMPHOCYTES % 12.5 % (15.0-51.0); MEAN CORPUSCULAR HEMOGLOBIN 27.4 pg (29.0-33.0); MEAN CORPUSCULAR HGB CONC 31.6 g/dl (32.0-37.0); MEAN CORPUSCULAR VOLUME 86.7 fl (82.0-101.0); MEAN PLATELET VOLUME 13.3 fl (7.4-10.4); MONOCYTE # 1.2 10^3/ul (0.3-0.9); MONOCYTES % 6.2 % (0.0-11.0); NEUTROPHIL # 14.1 10^3/ul (1.6-7.5); NEUTROPHILS % 76.4 % (39.0-77.0); PLATELET COUNT 266 10^3/UL (140-415); RED BLOOD COUNT 3.39 10^6/ul (4.20-5.40); RED CELL DISTRIBUTION WIDTH 15.7 % (11.5-14.5)
[2017-11-21 06:26] LABS: WHITE BLOOD COUNT 18.4 10^3/ul (4.8-10.8)
[2017-11-21 07:03] LABS: POSITIVE DIFF @See below
[2017-11-21 07:04] LABS: ALANINE AMINOTRANSFERASE 28 IU/L (13-69); ALBUMIN/GLOBULIN RATIO 0.85; ALKALINE PHOSPHATASE 101 IU/L (42-121); ANION GAP 14 (8-16); ASPARTATE AMINO TRANSFERASE 15 IU/L (15-46); BILIRUBIN,INDIRECT 0.3 mg/dl (0-1.1); BILIRUBIN,TOTAL 0.3 mg/dl (0.2-1.3); BLOOD UREA NITROGEN 28 mg/dl (7-20); CALCIUM 8.5 mg/dl (8.4-10.2); CARBON DIOXIDE 25 mmol/L (21-31); CHLORIDE 112 mmol/L (97-110); CREATININE 0.53 mg/dl (0.44-1.00); GLUCOSE 118 mg/dl (70-220); PHOSPHORUS 2.5 mg/dl (2.5-4.9); POTASSIUM 3.5 mmol/L (3.5-5.1); SODIUM 147 mmol/L (135-144); TOTAL PROTEIN 6.5 g/dl (6.1-8.1)
[2017-11-21 07:07] LABS: TROPONIN-I < 0.010 ng/ml (0.000-0.120)
[2017-11-21] MEDS: MEROPENEM 1 GM/50ML(PMX) 50 ML IVPB ×2 (09:11→20:02)
[2017-11-21] MEDS: ASPIRIN 81 MG TAB GTB (09:13)
[2017-11-21] MEDS: LACTOBACILLUS RHAMNOSUS CAP GTB ×2 (09:13→19:57)
[2017-11-21] MEDS: AMLODIPINE 2.5 MG TAB GTB (09:13)
[2017-11-21] MEDS: LORATADINE 10 MG TAB PO (09:13)
[2017-11-21] MEDS: ENOXAPARIN 40 MG/0.4 ML SYG SC (09:14)
[2017-11-21] MEDS: ALBUTEROL/IPRATROPIUM (NEB) 3 ML AMP HHN ×2 (09:31→20:28)
[2017-11-21] MEDS: VANCOMYCIN 1.25 GM in SOD CHLORIDE 0.9% 250 ML IVPB (12:21)
[2017-11-21] MEDS: D5W + KCL 20 MEQ 1,000 ML IV (15:50)
[2017-11-21] MEDS: ACETAMINOPHEN 325 MG TAB PO (17:38)
[2017-11-21] MEDS: ATORVASTATIN 20 MG TAB GTB (19:57)
[2017-11-21] MEDS: DOCUSATE SODIUM 10 MG/ML (10ML CUP) GTB (19:57)
[2017-11-21] MEDS ORDERED: FUROSEMIDE 40 MG INJ (23:32)
[2017-11-22] MEDS: D5W + KCL 20 MEQ 1,000 ML IV (00:31)
[2017-11-22] MEDS: FUROSEMIDE 40 MG INJ IV ×2 (00:40→09:34)
[2017-11-22] MEDS: LANSOPRAZOLE ORAL SUSP 3 MG/ML POSYG GTB (05:42)
[2017-11-22 05:56] LABS: ADD MAN DIFF? NO
[2017-11-22 06:03] LABS: WHITE BLOOD COUNT 14.9 10^3/ul (4.8-10.8)
[2017-11-22 06:03] LABS: ABNORMAL IP MESSAGE 1; BASOPHIL # 0.1 10^3/ul (0.0-0.1); BASOPHILS % 0.7 % (0.0-2.0); EOSINOPHILS # 0.5 10^3/ul (0.0-0.5); EOSINOPHILS % 3.2 % (0.0-7.0); HEMATOCRIT 31.6 % (37.0-47.0); LYMPHOCYTES # 2.1 10^3/ul (0.8-2.9); MEAN CORPUSCULAR HEMOGLOBIN 27.7 pg (29.0-33.0); MEAN CORPUSCULAR HGB CONC 31.6 g/dl (32.0-37.0); MEAN CORPUSCULAR VOLUME 87.5 fl (82.0-101.0); MEAN PLATELET VOLUME 12.5 fl (7.4-10.4); MONOCYTES % 6.7 % (0.0-11.0); NEUTROPHIL # 10.5 10^3/ul (1.6-7.5); NEUTROPHILS % 70.2 % (39.0-77.0); PLATELET COUNT 309 10^3/UL (140-415); RED BLOOD COUNT 3.61 10^6/ul (4.20-5.40); RED CELL DISTRIBUTION WIDTH 15.8 % (11.5-14.5)
[2017-11-22 06:09] LABS: POSITIVE DIFF @See below
[2017-11-22] MEDS: ACETAMINOPHEN 325 MG TAB PO ×2 (06:27→11:21)
[2017-11-22 06:28] LABS: ANION GAP 14 (8-16); BLOOD UREA NITROGEN 19 mg/dl (7-20); CALCIUM 8.5 mg/dl (8.4-10.2); CARBON DIOXIDE 31 mmol/L (21-31); CHLORIDE 100 mmol/L (97-110); CREATININE 0.55 mg/dl (0.44-1.00); GLUCOSE 121 mg/dl (70-220); MAGNESIUM 1.8 mg/dl (1.7-2.5); POTASSIUM 3.7 mmol/L (3.5-5.1); SODIUM 141 mmol/L (135-144)
[2017-11-22] MEDS: ASPIRIN 81 MG TAB GTB (09:33)
[2017-11-22] MEDS: LORATADINE 10 MG TAB PO (09:33)
[2017-11-22] MEDS: LACTOBACILLUS RHAMNOSUS CAP GTB ×2 (09:33→21:08)
[2017-11-22] MEDS: MEROPENEM 1 GM/50ML(PMX) 50 ML IVPB ×2 (09:34→21:10)
[2017-11-22] MEDS: AMLODIPINE 2.5 MG TAB GTB (09:34)
[2017-11-22] MEDS: ENOXAPARIN 40 MG/0.4 ML SYG SC (09:35)
[2017-11-22] MEDS: VANCOMYCIN 1.25 GM in SOD CHLORIDE 0.9% 250 ML IVPB (11:26)
[2017-11-22] MEDS: DOCUSATE SODIUM 10 MG/ML (10ML CUP) GTB (21:08)
[2017-11-22] MEDS: ATORVASTATIN 20 MG TAB GTB (21:08)
[2017-11-22] MEDS: ALBUTEROL/IPRATROPIUM (NEB) 3 ML AMP HHN (21:36)
[2017-11-23] MEDS: LANSOPRAZOLE ORAL SUSP 3 MG/ML POSYG GTB (05:32)
[2017-11-23] MEDS: LORATADINE 10 MG TAB PO (09:32)
[2017-11-23] MEDS: ASPIRIN 81 MG TAB GTB (09:32)
[2017-11-23] MEDS: AMLODIPINE 2.5 MG TAB GTB (09:32)
[2017-11-23] MEDS: MEROPENEM 1 GM/50ML(PMX) 50 ML IVPB ×2 (09:32→21:34)
[2017-11-23] MEDS: ENOXAPARIN 40 MG/0.4 ML SYG SC (09:33)
[2017-11-23] MEDS: FUROSEMIDE 40 MG INJ IV (09:33)
[2017-11-23] MEDS: LACTOBACILLUS RHAMNOSUS CAP GTB ×2 (09:34→21:34)
[2017-11-23] MEDS: ACETAMINOPHEN 325 MG TAB PO (12:03)
[2017-11-23] MEDS: VANCOMYCIN 1.25 GM in SOD CHLORIDE 0.9% 250 ML IVPB ×2 (12:03→12:14)
[2017-11-23 13:10] LABS: VANCOMYCIN,TROUGH 9.4 ug/ml (10.0-20.0)
[2017-11-23] MEDS: DOCUSATE SODIUM 10 MG/ML (10ML CUP) GTB (21:34)
[2017-11-23] MEDS: ATORVASTATIN 20 MG TAB GTB (21:34)
[2017-11-23] MEDS: ALBUTEROL/IPRATROPIUM (NEB) 3 ML AMP HHN (22:53)
[2017-11-24] MEDS: VANCOMYCIN 750 MG in SOD CHLORIDE 0.9% 150 ML IVPB ×2 (04:29→16:13)
[2017-11-24] MEDS: LANSOPRAZOLE ORAL SUSP 3 MG/ML POSYG GTB (05:24)
[2017-11-24] MEDS: MEROPENEM 1 GM/50ML(PMX) 50 ML IVPB ×2 (09:27→23:17)
[2017-11-24] MEDS: ENOXAPARIN 40 MG/0.4 ML SYG SC (09:28)
[2017-11-24] MEDS: LACTOBACILLUS RHAMNOSUS CAP GTB ×2 (09:29→23:17)
[2017-11-24] MEDS: ASPIRIN 81 MG TAB GTB (09:29)
[2017-11-24] MEDS: ACETAMINOPHEN 325 MG TAB PO (09:29)
[2017-11-24] MEDS: AMLODIPINE 2.5 MG TAB GTB (09:29)
[2017-11-24] MEDS: LORATADINE 10 MG TAB PO (09:29)
[2017-11-24] MEDS: FUROSEMIDE 40 MG INJ IV (09:29)
[2017-11-24] MEDS: morphine LIQ (10 MG/5 ML) CUP PO (16:14)
[2017-11-24] MEDS: ATORVASTATIN 20 MG TAB GTB (23:17)
[2017-11-24] MEDS: DOCUSATE SODIUM 10 MG/ML (10ML CUP) GTB (23:18)
[2017-11-25] MEDS: VANCOMYCIN 750 MG in SOD CHLORIDE 0.9% 150 ML IVPB ×2 (04:47→15:58)
[2017-11-25] MEDS: LANSOPRAZOLE ORAL SUSP 3 MG/ML POSYG GTB (06:10)
[2017-11-25] MEDS: ASPIRIN 81 MG TAB GTB (10:00)
[2017-11-25] MEDS: LORATADINE 10 MG TAB PO (10:15)
[2017-11-25] MEDS: AMLODIPINE 2.5 MG TAB GTB (10:15)
[2017-11-25] MEDS: LACTOBACILLUS RHAMNOSUS CAP GTB (10:15)
[2017-11-25] MEDS: MEROPENEM 1 GM/50ML(PMX) 50 ML IVPB (10:16)
[2017-11-25] MEDS: ENOXAPARIN 40 MG/0.4 ML SYG SC (10:16)
[2017-11-25] MEDS: FUROSEMIDE 40 MG INJ IV (10:17)
== END 2017-11-25 18:18 | DRG 56 ==
LOC: E/R 00:40 → PP2 04:24
PROC: 0DH63UZ Insertion of Feeding Device into Stomach, Percutaneous Approach (ICD-10-PCS; principal; 2017-10-29 16:30)
DX: I69.391 Dysphagia following cerebral infarction (principal); J69.0 Pneumonitis due to inhalation of food and vomit; A41.9 Sepsis, unspecified organism; R65.20 Severe sepsis without septic shock; I69.354 Hemiplegia and hemiparesis following cerebral infarction affecting left non-dominant side; R13.12 Dysphagia, oropharyngeal phase; R34 Anuria and oliguria; E86.0 Dehydration; F09 Unspecified mental disorder due to known physiological condition; F01.50 Vascular dementia, unspecified severity, without behavioral disturbance, psychotic disturbance, mood disturbance, and anxiety; I69.321 Dysphasia following cerebral infarction; D64.9 Anemia, unspecified; E87.6 Hypokalemia; I10 Essential (primary) hypertension; K56.41 Fecal impaction; R62.7 Adult failure to thrive; R53.81 Other malaise; Z66 Do not resuscitate
CPT/HCPCS: 36415; 71045; 74018; 74230; 80048; 80053; 80069; 80202; 81001; 83036; 83605; 83690; 83735; 84100; 84484; 85025; 85610; 85730; 87040; 87075; 87086; 92526; 92610; 92611; 93005; 94640; 94664; 96374; 97110; 97162; 97530; 99285-25